=== PATIENT | male | born 1960 | race American Indian/Alaskan Native ===

== ENCOUNTER 2019-03-07 23:25 | Emergency (ER) | payer SELFPAY ==
[2019-03-07 23:53] VITALS: BP 115/78
--- NOTE | 2019-03-08 02:39 | Emergency Department Report ---
- General Chief complaint: Skin/Abscess/Foreign Body Stated complaint: FOREIGN BODY IN LEFT EAR Time Seen by Provider: 03/08/19 01:28 Source: patient Mode of arrival: Ambulatory Limitations: No Limitations - History of Present Illness Initial comments: Pt is a 59-year-old male who presents to the emergency room with complaints of an earring back being stuck inside of his left earlobe that occurred last night. He states when he laid down to take a nap and his earring had fallen out but he could feel the back inside his earlobe. States he has had these earrings in for approximately 3 days. He states he has had his ears pierced for long time. He states this has happened once before in the past and had to be cut out. He denies any past medical history or allergies medications. - Related Data Allergies Allergy/AdvReac Type Severity Reaction Status Date / Time No Known Allergies Allergy Unverified 03/07/19 23:53 Abscess Boil HPI - HPI Chief Complaint: Skin/Abscess/Foreign Body Stated Complaint: FOREIGN BODY IN LEFT EAR Time Seen by Provider: 03/08/19 01:28 Allergies/Adverse Reactions: Allergies Allergy/AdvReac Type Severity Reaction Status Date / Time No Known Allergies Allergy Unverified 03/07/19 23:53 ED Review of Systems ROS: Stated complaint: FOREIGN BODY IN LEFT EAR Other details as noted in HPI Comment: All other systems reviewed and negative ED Past Medical Hx - Past Medical History Previous Medical History?: No - Surgical History Hx Appendectomy: Yes Additional Surgical History: Right Ankle - Social History Smoking Status: Never Smoker Substance Use Type: None ED Physical Exam - General Limitations: No Limitations General appearance: alert, in no apparent distress - Head Head exam: Present: atraumatic, normocephalic - Eye Eye exam: Present: normal appearance - ENT ENT exam: Present: mucous membranes moist, other (small hardened nodule present on the left ear lobe where a piercing hole is present, no drainage, no edema, no erythema, no increased warmth) - Neurological Exam Neurological exam: Present: alert, oriented X3 - Psychiatric Psychiatric exam: Present: normal affect, normal mood - Skin Skin exam: Present: warm, dry ED Course Vital Signs 03/07/19 03/08/19 23:49 03:35 Temperature 98.7 F Pulse Rate 59 L 63 Respiratory 18 17 Rate Blood Pressure 115/78 O2 Sat by Pulse 97 99 Oximetry - I & D Left Ear Type of Procedure: Simple Site: left ear lobe Blade Size: 11 I & D Procedure: betadine prep, sterile drapes applied, sterile dressing applied Progress: area prepped with betadine, sterile drapes applied, 2% lidocaine without epi used for anesthetic 2 cc used, 0.5 cm incision made with 11 blade, no foreign body identified, probed and used manual expression and no foreign body identified, appears to be scar tissue present, sanchez philippe PA-C extended the incision approximately another 0.5 cm to a total of 1 cm incision and also no foreign body identified, the hard nodule most likely represents scar tissue from patients prior procedure, pt tolerated well, no complications, bleeding controlled no foreign body identified ED Medical Decision Making - Medical Decision Making Pt is a 59-year-old male who presents to the emergency room with complaints of an earring back being stuck inside of his left earlobe that occurred last night. He states when he laid down to take a nap and his earring had fallen out but he could feel the back inside his earlobe. States he has had these earrings in for approximately 3 days. He states he has had his ears pierced for long time. He states this has happened once before in the past and had to be cut out. He denies any past medical history or allergies medications. vitals are stable. on exam: small hardened nodule present on the left ear lobe where a piercing hole is present, no drainage, no edema, no erythema, no increased warmth. I&D attempted per procedure note, appears to be fibrous/scar tissue, no foreign body identified. pt states he has had an I&D performed previously in this area due to his earring back being stuck before and most likely scar tissue is from that procedure. advised pt to please keep area clean and dry and covered. Do not place earrings back in the ear. may wash area with soap and water and immediately dry. No hot tub, pool, or soaking in water. May follow up with an ear nose and throat doctor in the next 2-3 days. Return to the emergency room for any new or worsening symptoms. Critical care attestation.: If time is entered above; I have spent that time in minutes in the direct care of this critically ill patient, excluding procedure time. ED Disposition Clinical Impression: Nodule of left external ear Disposition: DC-01 TO HOME OR SELFCARE Is pt being admited?: No Does the pt Need Aspirin: No Condition: Stable Additional Instructions: Please keep area clean and dry and covered. Do not place earrings back in the ear. may wash area with soap and water and immediately dry. No hot tub, pool, or soaking in water. May follow up with an ear nose and throat doctor in the next 2-3 days. Return to the emergency room for any new or worsening symptoms. Referrals: FREDA ERIC MD [Staff Physician] - 2-3 Days Time of Disposition: 03:25 Print Language: EGYPTIAN
== END 2019-03-08 03:35 | disposition home or self-care (01) ==
LOC: ED 23:25
DX: H61.892 Other specified disorders of left external ear (principal); Z90.49 Acquired absence of other specified parts of digestive tract; Z98.890 Other specified postprocedural states